=== PATIENT | male | born 1945 | race Caucasian/White ===

== ENCOUNTER 2019-06-17 09:58 | Day surgery (SDC) | payer BC ==
[~2019-06-17] VITALS: Ht 175.3 cm; Wt 65.0 kg
[2019-06-17] MEDS ORDERED: ASPIRIN81 MG PO (10:49)
[2019-06-17] MEDS ORDERED: NORVASC5 MG PO (10:49)
[2019-06-17] MEDS ORDERED: BACLOFEN20 M1 PO (10:49)
[2019-06-17] MEDS ORDERED: CENTRUM MEN'S1 EACH PO (10:49)
[2019-06-17] MEDS ORDERED: IBUPROFEN200 MG PO (10:50)
[2019-06-17] MEDS ORDERED: MOBIC7.5 MG PO (10:50)
[2019-06-17] MEDS ORDERED: FERROUS SULFAT325 MG PO (10:50)
[2019-06-17] MEDS ORDERED: LISINOPRIL-HCT1 EAC8 PO (10:50)
[2019-06-17 10:51] VITALS: BP 105/49; Ht 175.3 cm; Wt 65.0 kg
[2019-06-17 11:44] LABS: HEMATOCRIT 42.8 % (42.0-54.0); HEMOGLOBIN 14.4 g/dL (13.5-17.5); MCH 32.3 pg (26.0-34.0); MCHC 33.6 g/dL (31.0-37.0); RBC 4.46 10x6/uL (4.20-6.10); RDW 12.6 % (11.5-14.5); WBC 10.6 10x3/uL (4.8-10.8)
--- NOTE | 2019-06-17 13:06 | NUR ---
PT VOIDED. DC INSTRUCTIONS GIVEN TO PT/FAMILY. STATE UNDERSTANDING.
--- NOTE | 2019-06-17 13:17 | NUR ---
DC'D IV CATH FULLY INTACT.
--- NOTE | 2019-06-17 13:25 | NUR ---
PT LEFT UNIT VIA WC AT 1323
--- NOTE | 2019-06-26 07:36 | OP ---
PATIENT NAME: DENIZ RENNER MEDICAL RECORD: [id number] LOCATION:[facility] ADMISSION DATE: SURGEON: KATERINA MATIAS DO DATE OF OPERATION: 06/17/2019 PROCEDURE: Colonoscopy. INDICATIONS FOR PROCEDURE: Anemia. SCOPE: Olympus video pediatric colonoscope. MEDICATIONS: Propofol 150 mg IV per anesthesia. WITHDRAWAL TIME: 11 minutes. ESTIMATED BLOOD LOSS: None. COMPLICATIONS: None. FINDINGS: Informed consent was given. The patient was made comfortable with the above medication. After reaching an adequate level of sedation by slow IV push, the patient was placed on his left side. A digital rectal examination was performed and was normal. The endoscope was then advanced under direct visualization through the rectum to the cecum, confirmed by the presence of the appendiceal orifice and ileocecal valve. The endoscope was slowly withdrawn and mucosa was carefully examined. The prep quality was good. There were no polyps visualized on today's examination. There was moderate diverticulosis involving the descending and sigmoid colon. There was no evidence of diverticulitis. Retroflexion was performed in the rectum with visualization of grade I internal hemorrhoids without bleeding. The endoscope was withdrawn from the patient. The patient tolerated the procedure well and there were no complications. IMPRESSION: 1. Moderate diverticulosis of the descending and sigmoid colon. 2. Grade I internal hemorrhoids without bleeding. PLAN AND RECOMMENDATIONS: 1. Discharge home when recovery parameters are met. 2. High fiber diet. 3. Continue current medications. 4. Consider upper endoscopy and hematology evaluation. 5. Recall colonoscopy in 5 years for continued surveillance based on a personal history of polyps. TRANSINT:[id number] Voice Confirmation ID: [id number] DOCUMENT ID: [id number] KATERINA MATIAS DO at 0736 CC: [id number] DICTATION DATE: 06/17/19 1247 DIRECTOR COMMUNITY ORGANIZATION: 06/17/19 1303 [facility] [place] 06/17/19 [id number] [place] [address]
== END 2019-06-17 13:23 | disposition home or self-care (01) ==
LOC: D.OPS 09:58
PROVIDERS: Anesthesiology; ATTEND Internal Medicine Gastroenterology
DX: K57.30 Diverticulosis of large intestine without perforation or abscess without bleeding (principal); D64.9 Anemia, unspecified; K64.0 First degree hemorrhoids